=== PATIENT | male | born 1970 | race Hispanic/Latino ===

== ENCOUNTER 2019-03-15 16:04 | Inpatient (IN) | payer BC, OTHER ==
[~2019-03-15] VITALS: Ht 175.3 cm; Wt 112.8 kg
[~2019-03-15 16:04] MED LIST: AMOX-429 PO; AMOX875T2 PO; CETI10CA5 PO
[2019-03-15] MEDS ORDERED: SODIUM CHLORIDE 0.9% 1000ML 1,000 ML IV ONE ×2 (16:25→17:00)
[2019-03-15 16:48] LABS: APPEARANCE,URINE Clear (CLEAR); BILIRUBIN,URINE Negative (NEGATIVE); COLOR,URINE Yellow (YELLOW); GLUCOSE, URINE (UA) Negative (NEGATIVE); KETONES,URINE Negative (NEGATIVE); LEUKOCYTE ESTERASE ,URINE Trace (NEGATIVE); NITRATE,URINE Negative (NEGATIVE); OCCULT BLOOD,URINE Negative (NEGATIVE); PH,URINE 7.5 (5.0-8.0); PROTEIN,URINE Negative (NEGATIVE)
[2019-03-15 16:59] LABS: BACTERIA,URINE Few /HPF (None Seen); MUCUS,URINE None Seen LPF (None Seen)
[2019-03-15] MEDS ORDERED: KETOROLAC TROMETHAMINE 30MG/ML ONE (16:59)
[2019-03-15] MEDS ORDERED: METRONIDAZOLE 500MG/100ML BAG 100 ML ONE (16:59)
[2019-03-15] MEDS ORDERED: LEVOFLOXACIN 750 MG/D5W 150 ML 150 ML ONE (16:59)
[2019-03-15 17:02] LABS: BASOPHILS % (AUTO) 0.4 % (0.0-5.0); EOSINOPHILS % (AUTO) 0.7 % (0.0-8.0); HEMATOCRIT 45.1 % (42-54); LYMPHOCYTES % (AUTO) 15.8 % (21.0-51.0); MEAN CORPUSCULAR HEMOGLOBIN 29.2 pg (27.0-33.0); MEAN CORPUSCULAR HGB CONC 34.5 g/dL (32.0-36.0); MEAN CORPUSCULAR VOLUME 84.5 fL (79-99); MONOCYTES % (AUTO) 8.3 % (3.0-13.0); NEUTROPHILS % (AUTO) 74.8 % (40.0-77.0); PLATELET COUNT (AUTO) 171 K/uL (130-400); RED BLOOD CELL COUNT(AUTO) 5.34 MIL/uL (4.50-6.20); RED CELL DISTRIBUTION WIDTH 13.4 % (11.0-15.5); WHITE BLOOD COUNT (AUTO) 11.7 K/uL (4.8-10.8)
[2019-03-15 17:21] LABS: CARBON DIOXIDE 27 mmol/L (21-32); CHLORIDE 103 mmol/L (101-111); CREATININE 1.2 mg/dL (0.5-1.5); GLOMERULAR FILTR. RATE CALC 69 mL/min (>60); GLUCOSE,RANDOM 99 mg/dL (70-105); INR 1.05 (0.85-1.15); PARTIAL THROMBOPLASTIN TIME 25.5 SEC (26.3-35.5); POTASSIUM 3.8 mmol/L (3.5-5.1); SODIUM SERUM 141 mmol/L (136-145); UREA NITROGEN, BLOOD 13 mg/dL (7-18)
[2019-03-15 17:31] LABS: ALANINE AMINOTRANSFERASE 48 U/L (12-78); ALBUMIN 4.2 g/dL (3.5-5.0); AMYLASE 36 U/L (25-115); ASPARTATE AMINOTRANSFERASE 34 U/L (10-37); BILIRUBIN,TOTAL 1.4 mg/dL (0.2-1.0); CREATINE KINASE, TOTAL 81 U/L (21-232); LIPASE < 50 U/L (114-286); TOTAL PROTEIN, SERUM 7.7 g/dL (6.0-8.3)
[2019-03-15] MEDS ORDERED: TRAMADOL HCL 50 MG TABLET ONE (17:51)
[2019-03-15] MEDS ORDERED: MORPHINE SULFATE 4 MG/1ML SYG ONE ×2 (18:34→19:47)
[2019-03-15] MEDS ORDERED: ZOSYN 3.375GM+NS 50ML 50 ML IV ONE (19:35)
[2019-03-15] MEDS ORDERED: ONDANSETRON HCL 4 MG/2 ML VIAL IVP PRN (19:45)
[2019-03-15] MEDS: SODIUM CHLORIDE 0.9% 1000ML 1,000 ML IV SCH (19:45)
[2019-03-15] MEDS: ZOSYN 3.375GM+NS 50ML 50 ML IV SCH (21:00)
[2019-03-15 22:50] VITALS: BP 129/91
[2019-03-15] MEDS ORDERED: LACTULOSE 20 GM/30 ML UDCUP PO PRN (23:00)
[2019-03-15] MEDS ORDERED: ACETAMINOPHEN 325 MG TAB PO PRN ×2 (23:00)
[2019-03-15] MEDS ORDERED: LIDOCAINE HCL-MPF 1% 2ML VIAL IV PRN ×2 (23:00)
[2019-03-15] MEDS ORDERED: DIPHENHYDRAMINE HCL 25 MG CAPSULE PO PRN (23:00)
[2019-03-15] MEDS ORDERED: DiphenhydrAMINE HCL 50 MG/ML VIAL IV PRN (23:00)
[2019-03-15] MEDS ORDERED: POTASSIUM CHLORIDE 10% ELIXIR 20 MEQ/15 ML UDCUP PO PRN (23:00)
[2019-03-15] MEDS ORDERED: POTASSIUM CHLORIDE 20MEQ/100ML 100 ML IV PRN ×2 (23:00)
[2019-03-15] MEDS ORDERED: POTASSIUM CHLORIDE 20 MEQ ERTAB PO PRN (23:00)
[2019-03-15] MEDS ORDERED: ACETAMINOPHEN-CODEINE 300/30MG TAB PO PRN (23:00)
[2019-03-15] MEDS ORDERED: MAG HYDROX/AL HYDROX/SIMETH ES 30 ML SUSP UDCUP PO PRN (23:00)
[2019-03-15] MEDS: ONDANSETRON HCL 4 MG/2 ML VIAL IV PRN (23:09)
[2019-03-15] MEDS: MORPHINE SULFATE 4 MG/1ML SYG IVP PRN (23:09)
[2019-03-16] MEDS: MORPHINE SULFATE 4 MG/1ML SYG IVP PRN ×7 (02:00→22:08)
[2019-03-16] MEDS: SODIUM CHLORIDE 0.9% 1000ML 1,000 ML IV SCH ×2 (03:45→05:30)
[2019-03-16] MEDS: ZOSYN 3.375GM+NS 50ML 50 ML IV SCH ×3 (04:06→21:00)
[2019-03-16 04:28] VITALS: BP 121/68
[2019-03-16 05:56] LABS: HEMATOCRIT 40.9 % (42-54); MEAN CORPUSCULAR HEMOGLOBIN 29.1 pg (27.0-33.0); MEAN CORPUSCULAR HGB CONC 34.3 g/dL (32.0-36.0); MEAN CORPUSCULAR VOLUME 84.9 fL (79-99); PLATELET COUNT (AUTO) 153 K/uL (130-400); RED BLOOD CELL COUNT(AUTO) 4.82 MIL/uL (4.50-6.20); RED CELL DISTRIBUTION WIDTH 13.4 % (11.0-15.5); WHITE BLOOD COUNT (AUTO) 9.5 K/uL (4.8-10.8)
[2019-03-16 06:02] LABS: POTASSIUM 3.8 mmol/L (3.5-5.1)
[2019-03-16 07:41] VITALS: BP 121/77
[2019-03-16] MEDS ORDERED: MORPHINE SULFATE 4 MG/1ML SYG IVP PRN (07:45)
[2019-03-16] MEDS: ONDANSETRON HCL 4 MG/2 ML VIAL IV PRN ×2 (08:45→15:43)
[2019-03-16] MEDS: FAMOTIDINE/PF 20 MG/2 ML VIAL IV SCH (08:48)
[2019-03-16] MEDS: ENOXAPARIN SODIUM 40 MG/0.4 ML SYRINGE SQ SCH (08:51)
[2019-03-16 11:13] VITALS: BP 115/74
[2019-03-16] MEDS: METOCLOPRAMIDE 10 MG/2 ML VIAL IVP SCH ×4 (12:00→21:00)
[2019-03-16 15:54] VITALS: BP 113/72
--- NOTE | 2019-03-16 16:14 | NUR ---
RD NOTIFICATION Dx: Acute Pancreatitis. Hx: Diverticulitis, Diverticulosis, Hyperlipidemia. Diet: NPO. Pt stated he is currently experiencing nausea, abdominal pain and emesis. LBM: 03/15. Imaging findings suggest acute diverticulitis and gallstones. RD recommends continue current diet. Advance diet as tolerated when medically feasible to clear liquids, full liquids, and lastly low fiber & low fat diet. Once pt is tolerating well/ having no pain or discomfort- slowly increase fiber intake. RD will follow up with patient regarding dietary recommendations and nutrition education. Monitor labs, PO tolerance and pain. Yulissa Saldivar MS, RDN Addendum: 03/16/19 at [address] Amended: Links added.
[2019-03-16 19:40] VITALS: BP 131/71
[2019-03-17 00:16] VITALS: BP 110/77
[2019-03-17] MEDS: SODIUM CHLORIDE 0.9% 1000ML 1,000 ML IV SCH ×4 (03:17→19:55)
[2019-03-17] MEDS: MORPHINE SULFATE 4 MG/1ML SYG IVP PRN ×4 (03:18→23:08)
[2019-03-17] MEDS: METOCLOPRAMIDE 10 MG/2 ML VIAL IVP SCH ×4 (03:18→20:08)
[2019-03-17 03:50] VITALS: BP 118/64
[2019-03-17] MEDS: ZOSYN 3.375GM+NS 50ML 50 ML IV SCH ×3 (05:29→20:09)
[2019-03-17 05:51] LABS: HEMATOCRIT 42.7 % (42-54); MEAN CORPUSCULAR HEMOGLOBIN 29.1 pg (27.0-33.0); MEAN CORPUSCULAR HGB CONC 33.7 g/dL (32.0-36.0); MEAN CORPUSCULAR VOLUME 86.3 fL (79-99); NUCLEATED RED BLOOD CELLS 0.1 % (0.0-0.19); PLATELET COUNT (AUTO) 152 K/uL (130-400); RED BLOOD CELL COUNT(AUTO) 4.94 MIL/uL (4.50-6.20); RED CELL DISTRIBUTION WIDTH 13.5 % (11.0-15.5); WHITE BLOOD COUNT (AUTO) 7.6 K/uL (4.8-10.8)
[2019-03-17 06:05] LABS: POTASSIUM 3.8 mmol/L (3.5-5.1)
[2019-03-17 07:37] VITALS: BP 116/76
[2019-03-17] MEDS: FAMOTIDINE/PF 20 MG/2 ML VIAL IV SCH (08:16)
[2019-03-17] MEDS: ENOXAPARIN SODIUM 40 MG/0.4 ML SYRINGE SQ SCH (08:16)
[2019-03-17] MEDS: PANTOPRAZOLE SODIUM 40 MG TABLET.DR PO SCH (09:30)
[2019-03-17] MEDS: ONDANSETRON HCL 4 MG/2 ML VIAL IV PRN (11:04)
[2019-03-17 12:00] VITALS: BP 150/89
[2019-03-17 16:00] VITALS: BP 118/73
[2019-03-17 19:00] VITALS: BP 127/83
[2019-03-18] VITALS: BP 112/70
[2019-03-18] MEDS: METOCLOPRAMIDE 10 MG/2 ML VIAL IVP SCH (03:05)
[2019-03-18] MEDS: SODIUM CHLORIDE 0.9% 1000ML 1,000 ML IV SCH ×2 (03:50→11:45)
[2019-03-18 04:00] VITALS: BP 131/81
[2019-03-18] MEDS: ZOSYN 3.375GM+NS 50ML 50 ML IV SCH (04:08)
[2019-03-18] MEDS ORDERED: LEVO500T2 PO (07:39)
[2019-03-18 08:00] VITALS: BP 120/76
[2019-03-18] MEDS ORDERED: LEVOFLOXACIN 500 MG TABLET PO SCH (09:00)
[2019-03-18] MEDS: METOCLOPRAMIDE 10 MG TABLET PO SCH ×2 (09:18→12:47)
[2019-03-18] MEDS: ENOXAPARIN SODIUM 40 MG/0.4 ML SYRINGE SQ SCH (09:18)
[2019-03-18] MEDS: PANTOPRAZOLE SODIUM 40 MG TABLET.DR PO SCH (09:18)
[2019-03-18 11:49] VITALS: BP 133/78
== END 2019-03-18 17:02 | disposition home or self-care (01) | DRG 392 ==
LOC: EDH 16:04 → OBSVTOIN 18:35 → EDHIP 18:35 → 4DH 22:06 → 4BH 03-17 10:35
PROVIDERS: ADMIT Internal Medicine; ATTEND Internal Medicine
DX: K57.32 Diverticulitis of large intestine without perforation or abscess without bleeding (principal); E78.2 Mixed hyperlipidemia; F17.200 Nicotine dependence, unspecified, uncomplicated; I70.0 Atherosclerosis of aorta; J30.9 Allergic rhinitis, unspecified; K80.20 Calculus of gallbladder without cholecystitis without obstruction; M50.90 Cervical disc disorder, unspecified, unspecified cervical region; E66.9 Obesity, unspecified; M75.91 Shoulder lesion, unspecified, right shoulder; R16.0 Hepatomegaly, not elsewhere classified; Z82.49 Family history of ischemic heart disease and other diseases of the circulatory system; Z68.36 Body mass index [BMI] 36.0-36.9, adult
CPT/HCPCS: 36415; 71045; 74018; 74176; 80048; 80053; 81001; 82150; 82550; 83690; 84484; 85025; 85027; 85610; 85730; 87040; 93005; G0378; J1650; J1885; J1956; J2270; J2405; J2543; J2765; J3490; J7030

== ENCOUNTER 2019-11-29 14:13 | Emergency (ER) | payer BC ==
[~2019-11-29 14:13] MED LIST changes: -AMOX-429 PO; -AMOX875T2 PO; -CETI10CA5 PO; +LEVO500T2 PO
[2019-11-29] MEDS ORDERED: ACETAMINOPHEN EXTRA STRENGTH 500 MG TABLET ONE (14:35)
[2019-11-29 15:07] LABS: RAPID GROUP A STREP NEGATIVE (NEGATIVE)
== END 2019-11-29 15:47 | disposition home or self-care (01) ==
LOC: EDH 14:13
DX: U07.1 COVID-19 (principal); Z87.891 Personal history of nicotine dependence
CPT/HCPCS: 36415; 71045; 87804 ×2; 87880; 99284; U0003

== ENCOUNTER 2019-12-02 13:27 | Emergency (ER) | payer BC ==
[2019-12-02 15:46] LABS: BASOPHILS % (AUTO) 0.1 % (0.0-5.0); HEMATOCRIT 50.4 % (42-54); LYMPHOCYTES % (AUTO) 10.4 % (21.0-51.0); MEAN CORPUSCULAR HEMOGLOBIN 28.5 pg (27.0-33.0); MEAN CORPUSCULAR HGB CONC 33.5 g/dL (32.0-36.0); MONOCYTES % (AUTO) 4.2 % (3.0-13.0); NEUTROPHILS % (AUTO) 84.6 % (40.0-77.0); PLATELET COUNT (AUTO) 209 K/uL (130-400); RED BLOOD CELL COUNT(AUTO) 5.93 MIL/uL (4.50-6.20); RED CELL DISTRIBUTION WIDTH 13.1 % (11.0-15.5); WHITE BLOOD COUNT (AUTO) 7.6 K/uL (4.8-10.8)
[2019-12-02 15:57] LABS: INR 0.99 (0.85-1.15); PARTIAL THROMBOPLASTIN TIME 27.4 SEC (26.3-35.5); PROTHROMBIN TIME 10.7 SEC (9.6-11.6)
[2019-12-02 16:02] LABS: CARBON DIOXIDE 25 mmol/L (21-32); CHLORIDE 101 mmol/L (101-111); CREATININE 1.1 mg/dL (0.5-1.5); GLOMERULAR FILTR. RATE CALC 76 mL/min (>60); GLUCOSE,RANDOM 132 mg/dL (70-105); POTASSIUM 3.7 mmol/L (3.5-5.1); SODIUM SERUM 139 mmol/L (136-145); UREA NITROGEN, BLOOD 16 mg/dL (7-18)
[2019-12-02] MEDS ORDERED: ACETAMINOPHEN 325 MG TAB ONE (16:09)
[2019-12-02 16:17] LABS: ALANINE AMINOTRANSFERASE 86 U/L (12-78); ALBUMIN 4.3 g/dL (3.5-5.0); ASPARTATE AMINOTRANSFERASE 77 U/L (10-37); BILIRUBIN,TOTAL 0.9 mg/dL (0.2-1.0); CREATINE KINASE, TOTAL 44 U/L (21-232); MYOGLOBIN 33 ng/mL (10-92); TOTAL PROTEIN, SERUM 8.7 g/dL (6.0-8.3); TROPONIN I < 0.04 ng/mL (0.00-0.06)
[2019-12-02] MEDS ORDERED: METHYLPREDNISOLONE SOD SUCC 40MG/ML 1ML ONE (17:55)
[2019-12-02] MEDS ORDERED: CEFTRIAXONE SODIUM 1 GM ONE (17:56)
[2019-12-02] MEDS ORDERED: AZITHROMYCIN 500MG+NS 250ML 250 ML IV ONE (17:56)
[2019-12-02 18:32] LABS: ABG HCO3 22.4 mmol/L (21.0-28.0); ABG OXYGEN SATURATION 96.4 % (95.0-99.0); ABG PCO2 34 mmHg (35-48)
== END 2019-12-02 19:20 | disposition home or self-care (01) ==
LOC: EDH 13:27
DX: U07.1 COVID-19 (principal); R06.00 Dyspnea, unspecified; R50.9 Fever, unspecified
CPT/HCPCS: 36415; 36600; 71045; 80053; 82550; 82803; 83605 ×2; 83874; 84145; 84484; 85025; 85378; 85610; 85730; 86900; 86901; 87040 ×2; 93005; 96365; 96375; 99285; J0456; J0696; J2920

== ENCOUNTER 2019-12-07 08:43 | Inpatient (IN) | payer BC ==
[~2019-12-07] VITALS: Ht 175.3 cm; Wt 102.9 kg
[2019-12-07 09:39] LABS: BASOPHILS % (AUTO) 0.2 % (0.0-5.0); HEMATOCRIT 47.1 % (42-54); LYMPHOCYTES % (AUTO) 8.8 % (21.0-51.0); MEAN CORPUSCULAR HEMOGLOBIN 28.6 pg (27.0-33.0); MEAN CORPUSCULAR HGB CONC 33.8 g/dL (32.0-36.0); MEAN CORPUSCULAR VOLUME 84.9 fL (79-99); MONOCYTES % (AUTO) 5.4 % (3.0-13.0); NEUTROPHILS % (AUTO) 84.7 % (40.0-77.0); PLATELET COUNT (AUTO) 291 K/uL (130-400); RED BLOOD CELL COUNT(AUTO) 5.55 MIL/uL (4.50-6.20); RED CELL DISTRIBUTION WIDTH 12.5 % (11.0-15.5); WHITE BLOOD COUNT (AUTO) 14.5 K/uL (4.8-10.8)
[2019-12-07 10:03] LABS: INR 0.97 (0.85-1.15); PARTIAL THROMBOPLASTIN TIME 23.2 SEC (26.3-35.5); PROTHROMBIN TIME 10.5 SEC (9.6-11.6)
[2019-12-07 10:18] LABS: ALANINE AMINOTRANSFERASE 36 U/L (12-78); ALBUMIN 3.5 g/dL (3.5-5.0); ASPARTATE AMINOTRANSFERASE 26 U/L (10-37); BILIRUBIN,TOTAL 0.9 mg/dL (0.2-1.0); CARBON DIOXIDE 28 mmol/L (21-32); CHLORIDE 103 mmol/L (101-111); CREATINE KINASE, TOTAL 38 U/L (21-232); CREATININE 1.2 mg/dL (0.5-1.5); GLOMERULAR FILTR. RATE CALC 68 mL/min (>60); GLUCOSE,RANDOM 116 mg/dL (70-105); MYOGLOBIN 51 ng/mL (10-92); POTASSIUM 3.8 mmol/L (3.5-5.1); SODIUM SERUM 139 mmol/L (136-145); TOTAL PROTEIN, SERUM 8.1 g/dL (6.0-8.3); TROPONIN I < 0.04 ng/mL (0.00-0.06); UREA NITROGEN, BLOOD 22 mg/dL (7-18)
[2019-12-07] MEDS ORDERED: DEXAMETHASONE SOD PHOSPHATE 10MG/ML 1ML VIAL ONE (10:51)
[2019-12-07 12:12] LABS: ABG BASE EXCESS -1.1 mmol/L (-2.0-3.0); ABG HCO3 22.8 mmol/L (21.0-28.0); ABG OXYGEN SATURATION 97.6 % (95.0-99.0); ABG PCO2 36 mmHg (35-48)
[2019-12-07] MEDS ORDERED: DOXYCYCLINE 100MG+NS 250ML 250 ML IV ONE (12:13)
[2019-12-07] MEDS ORDERED: DOXYCYCLINE 100MG+NS 250ML IV SCH (13:30)
[2019-12-07] MEDS ORDERED: ERGOCALCIFEROL (VITAMIN D2) 50,000 UNIT CAPSULE PO ONE (13:30)
[2019-12-07] MEDS ORDERED: METHYLPREDNISOLONE SOD SUCC 40MG/ML 1ML ONE ×2 (14:22→20:39)
[2019-12-07] MEDS ORDERED: ERGOCALCIFEROL (VITAMIN D2) 50,000 UNIT CAPSULE ONE (14:23)
[2019-12-07] MEDS ORDERED: IOHEXOL 350 MG/ML 100ML INFUS..BTL IV ONE (14:46)
[2019-12-07 15:08] LABS: APPEARANCE,URINE Clear (CLEAR); BILIRUBIN,URINE Negative (NEGATIVE); COLOR,URINE Dark Yellow (YELLOW); GLUCOSE, URINE (UA) Negative (NEGATIVE); KETONES,URINE Negative (NEGATIVE); LEUKOCYTE ESTERASE ,URINE Negative (NEGATIVE); NITRATE,URINE Negative (NEGATIVE); OCCULT BLOOD,URINE Negative (NEGATIVE); PH,URINE 5.5 (5.0-8.0); PROTEIN,URINE Negative (NEGATIVE)
[2019-12-07] MEDS ORDERED: ONDANSETRON HCL 4 MG/2 ML VIAL IVP PRN (17:30)
[2019-12-07] MEDS ORDERED: BENZONATATE 100 MG CAPSULE PO PRN (17:30)
[2019-12-07] MEDS ORDERED: ACETAMINOPHEN 325 MG TAB PO PRN (17:30)
[2019-12-07] MEDS ORDERED: ENOXAPARIN SODIUM 100 MG/1 ML SQ ONE (20:41)
[2019-12-07] MEDS ORDERED: ACETAMINOPHEN 325 MG TAB ONE (20:53)
[2019-12-08] MEDS ORDERED: DOXYCYCLINE 100MG+NS 250ML 250 ML IV ONE (00:12)
[2019-12-08 05:55] LABS: BASOPHILS % (AUTO) 0.1 % (0.0-5.0); EOSINOPHILS % (AUTO) 0.1 % (0.0-8.0); HEMATOCRIT 43.7 % (42-54); LYMPHOCYTES % (AUTO) 9.3 % (21.0-51.0); MEAN CORPUSCULAR HEMOGLOBIN 28.3 pg (27.0-33.0); MEAN CORPUSCULAR HGB CONC 33.2 g/dL (32.0-36.0); MEAN CORPUSCULAR VOLUME 85.2 fL (79-99); MONOCYTES % (AUTO) 4.4 % (3.0-13.0); NEUTROPHILS % (AUTO) 84.9 % (40.0-77.0); PLATELET COUNT (AUTO) 271 K/uL (130-400); RED BLOOD CELL COUNT(AUTO) 5.13 MIL/uL (4.50-6.20); RED CELL DISTRIBUTION WIDTH 12.6 % (11.0-15.5); WHITE BLOOD COUNT (AUTO) 12.9 K/uL (4.8-10.8)
[2019-12-08 06:07] LABS: ALBUMIN 2.7 g/dL (3.5-5.0); BILIRUBIN,TOTAL 0.7 mg/dL (0.2-1.0); CREATININE 1.1 mg/dL (0.5-1.5); CRP QUANTITATIVE 57.1 mg/L (0.00-9.0); POTASSIUM 4.2 mmol/L (3.5-5.1); TOTAL PROTEIN, SERUM 6.9 g/dL (6.0-8.3)
[2019-12-08] MEDS ORDERED: ZINC SULFATE 220 CAPSULE ONE (08:11)
[2019-12-08] MEDS ORDERED: METHYLPREDNISOLONE SOD SUCC 40MG/ML 1ML ONE (08:11)
[2019-12-08] MEDS ORDERED: DOXYCYCLINE HYCLATE 100 MG TABLET PO ONE (08:11)
[2019-12-08] MEDS ORDERED: ASCORBIC ACID 500 MG TAB ONE (08:11)
[2019-12-08] MEDS ORDERED: ENOXAPARIN SODIUM 120 MG/0.8ML SQ ONE (08:12)
[2019-12-08] MEDS: ASCORBIC ACID 500 MG TAB PO SCH (09:00)
[2019-12-08] MEDS: DOXYCYCLINE HYCLATE 100 MG TABLET PO SCH ×2 (09:00→21:46)
[2019-12-08] MEDS: ENOXAPARIN SODIUM 120 MG/0.8ML SQ SCH ×2 (09:00→21:00)
[2019-12-08] MEDS ORDERED: ALBUTEROL INHALER 90MCG/INH IH ONE (10:27)
[2019-12-08] MEDS ORDERED: ALBUTEROL INHALER 90MCG/INH IH PRN (10:30)
[2019-12-08 11:02] LABS: ABG BASE EXCESS -3.8 mmol/L (-2.0-3.0); ABG HCO3 20.1 mmol/L (21.0-28.0); ABG OXYGEN SATURATION 98.3 % (95.0-99.0); ABG PCO2 34 mmHg (35-48)
[2019-12-08] MEDS ORDERED: KETOROLAC TROMETHAMINE 15MG/ML ONE (11:47)
[2019-12-08] MEDS: CEFTRIAXONE SODIUM 1 GM IVP SCH (12:00)
[2019-12-08] MEDS: ZINC SULFATE 220 CAPSULE PO SCH (12:00)
[2019-12-08] MEDS: METHYLPREDNISOLONE SOD SUCC 40MG/ML 1ML IVP SCH ×2 (14:00→21:45)
[2019-12-08] MEDS ORDERED: MORPHINE SULFATE 2 MG/ML 1ML SYG ONE (14:38)
[2019-12-08] MEDS ORDERED: CEFTRIAXONE SODIUM 1 GM ONE (16:32)
[2019-12-08] MEDS ORDERED: SODIUM CHLORIDE 0.9% 100 ML IV ONE (16:34)
[2019-12-08 17:45] VITALS: BP 121/75
[2019-12-08 19:25] VITALS: BP 115/66
[2019-12-08 23:58] VITALS: BP 103/65
[2019-12-09 03:20] VITALS: BP 111/67
[2019-12-09 04:46] LABS: BASOPHILS % (AUTO) 0.1 % (0.0-5.0); HEMATOCRIT 46.3 % (42-54); LYMPHOCYTES % (AUTO) 7.7 % (21.0-51.0); MEAN CORPUSCULAR HEMOGLOBIN 27.9 pg (27.0-33.0); MEAN CORPUSCULAR HGB CONC 32.4 g/dL (32.0-36.0); MEAN CORPUSCULAR VOLUME 86.1 fL (79-99); MONOCYTES % (AUTO) 4.2 % (3.0-13.0); NEUTROPHILS % (AUTO) 86.9 % (40.0-77.0); PLATELET COUNT (AUTO) 281 K/uL (130-400); RED BLOOD CELL COUNT(AUTO) 5.38 MIL/uL (4.50-6.20); RED CELL DISTRIBUTION WIDTH 12.3 % (11.0-15.5); WHITE BLOOD COUNT (AUTO) 14.2 K/uL (4.8-10.8)
[2019-12-09 05:21] LABS: ALBUMIN 2.9 g/dL (3.5-5.0); BILIRUBIN,TOTAL 0.7 mg/dL (0.2-1.0); CRP QUANTITATIVE 31.4 mg/L (0.00-9.0); POTASSIUM 4.3 mmol/L (3.5-5.1); TOTAL PROTEIN, SERUM 7.1 g/dL (6.0-8.3)
[2019-12-09 08:40] VITALS: BP 112/62
[2019-12-09] MEDS: METHYLPREDNISOLONE SOD SUCC 40MG/ML 1ML IVP SCH ×3 (09:04→20:01)
[2019-12-09] MEDS: ASCORBIC ACID 500 MG TAB PO SCH (09:04)
[2019-12-09] MEDS: DOXYCYCLINE HYCLATE 100 MG TABLET PO SCH ×2 (09:04→20:01)
[2019-12-09] MEDS ORDERED: CHLORDIAZEPOXIDE HCL 25 MG CAP PO SCH (09:45)
[2019-12-09 12:05] VITALS: BP 114/72
[2019-12-09] MEDS: ZINC SULFATE 220 CAPSULE PO SCH (13:10)
[2019-12-09] MEDS: CEFTRIAXONE SODIUM 1 GM IVP SCH (13:10)
[2019-12-09] MEDS ORDERED: SODIUM CHLORIDE 0.9% 250 ML IV ONE (16:22)
[2019-12-09 16:55] VITALS: BP 117/75
[2019-12-09 19:25] VITALS: BP 119/70
[2019-12-09] MEDS: ENOXAPARIN SODIUM 60 MG/0.6 ML SQ SCH (20:06)
[2019-12-09 23:52] VITALS: BP 133/74
[2019-12-10 03:25] VITALS: BP 110/74
[2019-12-10 06:17] LABS: BASOPHILS % (AUTO) 0.2 % (0.0-5.0); HEMATOCRIT 45.6 % (42-54); LYMPHOCYTES % (AUTO) 6.7 % (21.0-51.0); MEAN CORPUSCULAR HGB CONC 32.9 g/dL (32.0-36.0); MEAN CORPUSCULAR VOLUME 85.2 fL (79-99); MONOCYTES % (AUTO) 5.3 % (3.0-13.0); NEUTROPHILS % (AUTO) 86.8 % (40.0-77.0); PLATELET COUNT (AUTO) 246 K/uL (130-400); RED BLOOD CELL COUNT(AUTO) 5.35 MIL/uL (4.50-6.20); RED CELL DISTRIBUTION WIDTH 12.2 % (11.0-15.5); WHITE BLOOD COUNT (AUTO) 12.9 K/uL (4.8-10.8)
[2019-12-10 06:42] LABS: BILIRUBIN,TOTAL 0.8 mg/dL (0.2-1.0); CREATININE 1.1 mg/dL (0.5-1.5); CRP QUANTITATIVE 18.9 mg/L (0.00-9.0); POTASSIUM 4.5 mmol/L (3.5-5.1); TOTAL PROTEIN, SERUM 7.1 g/dL (6.0-8.3)
[2019-12-10] MEDS: ENOXAPARIN SODIUM 60 MG/0.6 ML SQ SCH ×2 (08:21→19:36)
[2019-12-10] MEDS: METHYLPREDNISOLONE SOD SUCC 40MG/ML 1ML IVP SCH ×3 (08:21→19:32)
[2019-12-10] MEDS: ASCORBIC ACID 500 MG TAB PO SCH (08:21)
[2019-12-10] MEDS: DOXYCYCLINE HYCLATE 100 MG TABLET PO SCH ×2 (08:21→19:33)
[2019-12-10 12:00] VITALS: BP 113/72
[2019-12-10] MEDS ORDERED: PHARMACY COMMUNICATION MISC SCH (13:30)
[2019-12-10] MEDS: PHARMACY COMMUNICATION** REMDESIVIR ORDER MISC SCH ×2 (13:30→21:30)
[2019-12-10] MEDS: ZINC SULFATE 220 CAPSULE PO SCH (13:33)
[2019-12-10] MEDS: CEFTRIAXONE SODIUM 1 GM IVP SCH (13:33)
[2019-12-10 16:00] VITALS: BP 127/74
[2019-12-10 19:15] VITALS: BP 108/66
[2019-12-10 23:26] VITALS: BP 110/65
[2019-12-11 03:30] VITALS: BP 111/73
[2019-12-11 04:24] LABS: BASOPHILS % (AUTO) 0.1 % (0.0-5.0); HEMATOCRIT 46.4 % (42-54); LYMPHOCYTES % (AUTO) 8.2 % (21.0-51.0); MEAN CORPUSCULAR HEMOGLOBIN 28.5 pg (27.0-33.0); MEAN CORPUSCULAR HGB CONC 33.6 g/dL (32.0-36.0); MEAN CORPUSCULAR VOLUME 84.8 fL (79-99); MONOCYTES % (AUTO) 4.5 % (3.0-13.0); NEUTROPHILS % (AUTO) 86.3 % (40.0-77.0); PLATELET COUNT (AUTO) 289 K/uL (130-400); RED BLOOD CELL COUNT(AUTO) 5.47 MIL/uL (4.50-6.20); RED CELL DISTRIBUTION WIDTH 11.9 % (11.0-15.5); WHITE BLOOD COUNT (AUTO) 9.9 K/uL (4.8-10.8)
[2019-12-11 04:34] LABS: ALANINE AMINOTRANSFERASE 108 U/L (12-78); ASPARTATE AMINOTRANSFERASE 59 U/L (10-37); BILIRUBIN,TOTAL 0.8 mg/dL (0.2-1.0); CARBON DIOXIDE 28 mmol/L (21-32); CHLORIDE 103 mmol/L (101-111); CREATININE 1.1 mg/dL (0.5-1.5); GLOMERULAR FILTR. RATE CALC 76 mL/min (>60); GLUCOSE,RANDOM 145 mg/dL (70-105); LACTATE DEHYDROGENASE 214 U/L (81-234); POTASSIUM 4.7 mmol/L (3.5-5.1); SODIUM SERUM 135 mmol/L (136-145); UREA NITROGEN, BLOOD 31 mg/dL (7-18)
[2019-12-11] MEDS: PHARMACY COMMUNICATION** REMDESIVIR ORDER MISC SCH ×3 (05:30→21:30)
[2019-12-11 08:44] VITALS: BP 111/63
[2019-12-11] MEDS: ASCORBIC ACID 500 MG TAB PO SCH (08:58)
[2019-12-11] MEDS: ENOXAPARIN SODIUM 60 MG/0.6 ML SQ SCH ×2 (08:59→19:41)
[2019-12-11] MEDS: METHYLPREDNISOLONE SOD SUCC 40MG/ML 1ML IVP SCH ×3 (08:59→19:40)
[2019-12-11] MEDS: DOXYCYCLINE HYCLATE 100 MG TABLET PO SCH ×2 (08:59→19:40)
[2019-12-11 11:14] VITALS: BP 107/55
[2019-12-11] MEDS: ZINC SULFATE 220 CAPSULE PO SCH (12:39)
[2019-12-11] MEDS: CEFTRIAXONE SODIUM 1 GM IVP SCH (12:39)
[2019-12-11 15:29] VITALS: BP 127/78
[2019-12-11] MEDS ORDERED: COMPOUND IV REFRIGERATED 1 EACH IVSOLN MISC PRN (17:00)
[2019-12-11] MEDS ORDERED: REMDESIVIR (EUA) 520 200 MG in SODIUM CHLORIDE 0.9% 250 ML IV SCH (18:00)
[2019-12-11 20:23] VITALS: BP 102/70
[2019-12-11 23:40] VITALS: BP 124/75
[2019-12-12 03:44] VITALS: BP_SYST 112; BP_SYST 131; BP_DIAS 71; BP_DIAS 77
[2019-12-12 05:14] LABS: BASOPHILS % (AUTO) 0.1 % (0.0-5.0); HEMATOCRIT 46.7 % (42-54); LYMPHOCYTES % (AUTO) 9.3 % (21.0-51.0); MEAN CORPUSCULAR HEMOGLOBIN 28.2 pg (27.0-33.0); MEAN CORPUSCULAR HGB CONC 33.4 g/dL (32.0-36.0); MEAN CORPUSCULAR VOLUME 84.4 fL (79-99); MONOCYTES % (AUTO) 5.6 % (3.0-13.0); NEUTROPHILS % (AUTO) 83.8 % (40.0-77.0); PLATELET COUNT (AUTO) 297 K/uL (130-400); RED BLOOD CELL COUNT(AUTO) 5.53 MIL/uL (4.50-6.20); RED CELL DISTRIBUTION WIDTH 11.9 % (11.0-15.5); WHITE BLOOD COUNT (AUTO) 9.8 K/uL (4.8-10.8)
[2019-12-12] MEDS: PHARMACY COMMUNICATION** REMDESIVIR ORDER MISC SCH ×3 (05:30→20:52)
[2019-12-12 05:42] LABS: BILIRUBIN,TOTAL 0.8 mg/dL (0.2-1.0); CRP QUANTITATIVE 7.4 mg/L (0.00-9.0); POTASSIUM 4.6 mmol/L (3.5-5.1)
[2019-12-12] MEDS: DOXYCYCLINE HYCLATE 100 MG TABLET PO SCH ×2 (08:47→20:50)
[2019-12-12] MEDS: ASCORBIC ACID 500 MG TAB PO SCH (08:47)
[2019-12-12] MEDS: METHYLPREDNISOLONE SOD SUCC 40MG/ML 1ML IVP SCH ×3 (08:47→20:50)
[2019-12-12] MEDS: ENOXAPARIN SODIUM 60 MG/0.6 ML SQ SCH ×2 (08:48→20:50)
[2019-12-12] MEDS: CEFTRIAXONE SODIUM 1 GM IVP SCH (13:58)
[2019-12-12] MEDS: ZINC SULFATE 220 CAPSULE PO SCH (13:58)
[2019-12-12 16:31] VITALS: BP 110/68
[2019-12-12] MEDS: REMDESIVIR (EUA) 520 100 MG in SODIUM CHLORIDE 0.9% 250 ML IV SCH (17:55)
[2019-12-12 21:00] VITALS: BP 101/76
[2019-12-12] MEDS ORDERED: HYDROMORPHONE HCL 2 MG/ML VIAL ONE (23:08)
[2019-12-12 23:23] VITALS: BP 122/77
[2019-12-13] MEDS: HYDROMORPHONE HCL 2 MG/ML VIAL IVP PRN ×4 (00:16→05:54)
[2019-12-13 03:53] VITALS: BP 122/76
[2019-12-13 05:18] LABS: BASOPHILS % (AUTO) 0.1 % (0.0-5.0); LYMPHOCYTES % (AUTO) 8.7 % (21.0-51.0); MEAN CORPUSCULAR HEMOGLOBIN 28.1 pg (27.0-33.0); MEAN CORPUSCULAR HGB CONC 33.5 g/dL (32.0-36.0); MEAN CORPUSCULAR VOLUME 83.9 fL (79-99); MONOCYTES % (AUTO) 6.2 % (3.0-13.0); NEUTROPHILS % (AUTO) 83.9 % (40.0-77.0); PLATELET COUNT (AUTO) 233 K/uL (130-400); RED BLOOD CELL COUNT(AUTO) 5.48 MIL/uL (4.50-6.20); RED CELL DISTRIBUTION WIDTH 11.9 % (11.0-15.5); WHITE BLOOD COUNT (AUTO) 10.3 K/uL (4.8-10.8)
[2019-12-13 05:56] LABS: ALBUMIN 2.9 g/dL (3.5-5.0); BILIRUBIN,TOTAL 0.8 mg/dL (0.2-1.0); CREATININE 1.1 mg/dL (0.5-1.5); POTASSIUM 4.6 mmol/L (3.5-5.1); TOTAL PROTEIN, SERUM 6.7 g/dL (6.0-8.3)
[2019-12-13 07:46] VITALS: BP 114/72
[2019-12-13] MEDS: ASCORBIC ACID 500 MG TAB PO SCH (07:50)
[2019-12-13] MEDS: LACTULOSE 20 GM/30 ML UDCUP PO PRN (07:50)
[2019-12-13] MEDS: METHYLPREDNISOLONE SOD SUCC 40MG/ML 1ML IVP SCH ×3 (07:50→21:29)
[2019-12-13] MEDS: DOXYCYCLINE HYCLATE 100 MG TABLET PO SCH ×2 (07:50→21:29)
[2019-12-13] MEDS: ENOXAPARIN SODIUM 60 MG/0.6 ML SQ SCH (07:52)
[2019-12-13 11:54] VITALS: BP 112/66
[2019-12-13] MEDS: CEFTRIAXONE SODIUM 1 GM IVP SCH (12:12)
[2019-12-13] MEDS: ZINC SULFATE 220 CAPSULE PO SCH (12:12)
[2019-12-13] MEDS: PHARMACY COMMUNICATION** REMDESIVIR ORDER MISC SCH ×3 (13:30→23:28)
[2019-12-13 15:38] VITALS: BP 108/69
[2019-12-13] MEDS: REMDESIVIR (EUA) 520 100 MG in SODIUM CHLORIDE 0.9% 250 ML IV SCH (18:34)
[2019-12-13 20:50] VITALS: BP 108/66
[2019-12-14] VITALS (7 sets, daily range): BP systolic 100–117; BP diastolic 66–78
[2019-12-14 05:37] LABS: BASOPHILS % (AUTO) 0.2 % (0.0-5.0); HEMATOCRIT 46.4 % (42-54); LYMPHOCYTES % (AUTO) 7.3 % (21.0-51.0); MEAN CORPUSCULAR HEMOGLOBIN 28.3 pg (27.0-33.0); MEAN CORPUSCULAR HGB CONC 33.8 g/dL (32.0-36.0); MEAN CORPUSCULAR VOLUME 83.8 fL (79-99); MONOCYTES % (AUTO) 4.3 % (3.0-13.0); NEUTROPHILS % (AUTO) 87.1 % (40.0-77.0); PLATELET COUNT (AUTO) 231 K/uL (130-400); RED BLOOD CELL COUNT(AUTO) 5.54 MIL/uL (4.50-6.20); RED CELL DISTRIBUTION WIDTH 12.1 % (11.0-15.5); WHITE BLOOD COUNT (AUTO) 11.4 K/uL (4.8-10.8)
[2019-12-14 05:55] LABS: ALANINE AMINOTRANSFERASE 106 U/L (12-78); ALBUMIN 2.9 g/dL (3.5-5.0); ASPARTATE AMINOTRANSFERASE 32 U/L (10-37); BILIRUBIN,TOTAL 0.8 mg/dL (0.2-1.0); CARBON DIOXIDE 31 mmol/L (21-32); CHLORIDE 103 mmol/L (101-111); GLOMERULAR FILTR. RATE CALC 84 mL/min (>60); GLUCOSE,RANDOM 148 mg/dL (70-105); LACTATE DEHYDROGENASE 177 U/L (81-234); POTASSIUM 4.7 mmol/L (3.5-5.1); SODIUM SERUM 136 mmol/L (136-145); TOTAL PROTEIN, SERUM 6.5 g/dL (6.0-8.3); UREA NITROGEN, BLOOD 27 mg/dL (7-18)
[2019-12-14] MEDS: ENOXAPARIN SODIUM 60 MG/0.6 ML SQ SCH (09:38)
[2019-12-14] MEDS: METHYLPREDNISOLONE SOD SUCC 40MG/ML 1ML IVP SCH ×3 (09:38→19:40)
[2019-12-14] MEDS: ASCORBIC ACID 500 MG TAB PO SCH (09:38)
[2019-12-14] MEDS: DOXYCYCLINE HYCLATE 100 MG TABLET PO SCH ×2 (09:39→19:40)
[2019-12-14] MEDS: ACETAMINOPHEN 325 MG TAB PO PRN (09:50)
[2019-12-14] MEDS: ZINC SULFATE 220 CAPSULE PO SCH (13:45)
[2019-12-14] MEDS: CEFTRIAXONE SODIUM 1 GM IVP SCH (13:45)
[2019-12-14] MEDS: REMDESIVIR (EUA) 520 100 MG in SODIUM CHLORIDE 0.9% 250 ML IV SCH (17:56)
[2019-12-15 04:43] VITALS: BP 119/71
[2019-12-15 06:18] LABS: BASOPHILS % (AUTO) 0.1 % (0.0-5.0); HEMATOCRIT 45.6 % (42-54); LYMPHOCYTES % (AUTO) 7.5 % (21.0-51.0); MEAN CORPUSCULAR HEMOGLOBIN 28.1 pg (27.0-33.0); MEAN CORPUSCULAR HGB CONC 33.8 g/dL (32.0-36.0); MEAN CORPUSCULAR VOLUME 83.2 fL (79-99); NEUTROPHILS % (AUTO) 86.3 % (40.0-77.0); PLATELET COUNT (AUTO) 259 K/uL (130-400); RED BLOOD CELL COUNT(AUTO) 5.48 MIL/uL (4.50-6.20); RED CELL DISTRIBUTION WIDTH 11.9 % (11.0-15.5); WHITE BLOOD COUNT (AUTO) 12.2 K/uL (4.8-10.8)
[2019-12-15 06:29] LABS: ALBUMIN 2.9 g/dL (3.5-5.0); BILIRUBIN,TOTAL 0.8 mg/dL (0.2-1.0); CRP QUANTITATIVE 7.2 mg/L (0.00-9.0); POTASSIUM 4.7 mmol/L (3.5-5.1); TOTAL PROTEIN, SERUM 6.5 g/dL (6.0-8.3)
[2019-12-15 07:00] VITALS: BP 112/71
[2019-12-15] MEDS: METHYLPREDNISOLONE SOD SUCC 40MG/ML 1ML IVP SCH ×3 (10:31→20:24)
[2019-12-15] MEDS: DOXYCYCLINE HYCLATE 100 MG TABLET PO SCH ×2 (10:32→20:24)
[2019-12-15] MEDS: ASCORBIC ACID 500 MG TAB PO SCH (10:32)
[2019-12-15] MEDS: ENOXAPARIN SODIUM 60 MG/0.6 ML SQ SCH (10:32)
[2019-12-15 11:00] VITALS: BP 109/68
[2019-12-15] MEDS: CEFTRIAXONE SODIUM 1 GM IVP SCH (12:15)
[2019-12-15] MEDS: ZINC SULFATE 220 CAPSULE PO SCH (12:15)
[2019-12-15] MEDS: LACTULOSE 20 GM/30 ML UDCUP PO PRN ×2 (12:26→18:30)
[2019-12-15 16:00] VITALS: BP 107/64
[2019-12-15] MEDS: REMDESIVIR (EUA) 520 100 MG in SODIUM CHLORIDE 0.9% 250 ML IV SCH (18:34)
[2019-12-15 20:00] VITALS: BP 108/69
[2019-12-15] MEDS ORDERED: KETOROLAC TROMETHAMINE 30MG/ML IM PRN (20:15)
[2019-12-15 23:57] VITALS: BP 118/76
[2019-12-16 04:00] VITALS: BP 111/74
[2019-12-16 07:57] LABS: BASOPHILS % (AUTO) 0.1 % (0.0-5.0); HEMATOCRIT 43.6 % (42-54); LYMPHOCYTES % (AUTO) 6.7 % (21.0-51.0); MEAN CORPUSCULAR HEMOGLOBIN 28.4 pg (27.0-33.0); MEAN CORPUSCULAR HGB CONC 34.4 g/dL (32.0-36.0); MEAN CORPUSCULAR VOLUME 82.6 fL (79-99); MONOCYTES % (AUTO) 5.6 % (3.0-13.0); NEUTROPHILS % (AUTO) 86.5 % (40.0-77.0); PLATELET COUNT (AUTO) 228 K/uL (130-400); RED BLOOD CELL COUNT(AUTO) 5.28 MIL/uL (4.50-6.20); WHITE BLOOD COUNT (AUTO) 14.1 K/uL (4.8-10.8)
[2019-12-16 08:07] LABS: ALBUMIN 2.8 g/dL (3.5-5.0); BILIRUBIN,TOTAL 0.7 mg/dL (0.2-1.0); CREATININE 1.1 mg/dL (0.5-1.5); CRP QUANTITATIVE 4.9 mg/L (0.00-9.0); POTASSIUM 4.6 mmol/L (3.5-5.1); TOTAL PROTEIN, SERUM 6.1 g/dL (6.0-8.3)
[2019-12-16 08:30] VITALS: BP 115/76
[2019-12-16] MEDS: METHYLPREDNISOLONE SOD SUCC 40MG/ML 1ML IVP SCH ×2 (09:28→12:55)
[2019-12-16] MEDS: DOXYCYCLINE HYCLATE 100 MG TABLET PO SCH (09:28)
[2019-12-16] MEDS: ENOXAPARIN SODIUM 60 MG/0.6 ML SQ SCH (09:29)
[2019-12-16] MEDS: ASCORBIC ACID 500 MG TAB PO SCH (09:29)
[2019-12-16 12:11] VITALS: BP 110/74
[2019-12-16] MEDS ORDERED: DEXA6TAB7 PO ×2 (12:53→13:03)
[2019-12-16] MEDS ORDERED: BENZ-39 PO (12:53)
[2019-12-16] MEDS ORDERED: DOXY500P4 MC (12:53)
[2019-12-16] MEDS ORDERED: [UNRECOGNIZED DRUG - CODE] MC (12:53)
[2019-12-16] MEDS ORDERED: ASCO500T10 PO (12:53)
[2019-12-16] MEDS ORDERED: ALBU8.5H8 IH (12:53)
[2019-12-16] MEDS: CEFTRIAXONE SODIUM 1 GM IVP SCH (12:55)
[2019-12-16] MEDS: ZINC SULFATE 220 CAPSULE PO SCH (12:57)
[2019-12-16] MEDS: ACETAMINOPHEN 325 MG TAB PO PRN (12:57)
[2019-12-16] MEDS ORDERED: LORA10TA60 PO (13:03)
== END 2019-12-16 15:15 | disposition home or self-care (01) | DRG 871 ==
LOC: EDH 08:43 → EDHIP 13:25 → 4AH 12-08 17:45
PROVIDERS: ADMIT Hospitalist; ATTEND Hospitalist
PROC: 30233K1 Transfusion of Nonautologous Frozen Plasma into Peripheral Vein, Percutaneous Approach (ICD-10-PCS; principal; 2019-12-07)
DX: A41.9 Sepsis, unspecified organism (principal); U07.1 COVID-19; J12.89 Other viral pneumonia; J96.01 Acute respiratory failure with hypoxia; E66.01 Morbid (severe) obesity due to excess calories; I10 Essential (primary) hypertension; K59.00 Constipation, unspecified; R53.81 Other malaise; Z68.33 Body mass index [BMI] 33.0-33.9, adult; Z86.19 Personal history of other infectious and parasitic diseases; Z82.49 Family history of ischemic heart disease and other diseases of the circulatory system
CPT/HCPCS: 36415; 36430; 36600; 71045; 71275; 74176; 80053; 81003; 82550; 82728; 82803; 83605; 83615; 83874; 84145; 84484; 85025; 85378; 85610; 85730; 86140; 86900; 86901; 86927; 87040; 87088; 87804; 93005; 99291; G0378; J0696; J1100; J1170; J1650; J1885; J2920; J3490; J7050; Q9967

== ENCOUNTER → 2020-01-13 | Outpatient (CLI) | payer BC ==
[~2020-01-13] MED LIST changes: +ALBU8.5H8 IH; +ASCO500T10 PO; +BENZ-39 PO; +DEXA6TAB7 PO; +DOXY500P4 MC; -LEVO500T2 PO; +LORA10TA60 PO; +[UNRECOGNIZED DRUG - CODE] MC
== END | disposition home or self-care (01) ==
LOC: RAH 16:00
PROVIDERS: ATTEND Internal Medicine
DX: U07.1 COVID-19 (principal); J12.89 Other viral pneumonia; M47.814 Spondylosis without myelopathy or radiculopathy, thoracic region
CPT/HCPCS: 71046

== ENCOUNTER → 2021-02-21 | Outpatient (CLI) | payer BC | END | disposition home or self-care (01) | LOC: RAH 15:21 | PROVIDERS: ATTEND Internal Medicine | DX: J84.9 Interstitial pulmonary disease, unspecified (principal); K80.20 Calculus of gallbladder without cholecystitis without obstruction | CPT/HCPCS: 71250 ==

== ENCOUNTER → 2023-05-26 | Outpatient (CLI) | payer BC | END | disposition home or self-care (01) | LOC: RAH 09:56 | PROVIDERS: ATTEND Internal Medicine | DX: J40 Bronchitis, not specified as acute or chronic (principal) | CPT/HCPCS: 71045 ==

== ENCOUNTER 2023-06-10 07:28 | Emergency (ER) | payer BC ==
[~2023-06-10] VITALS: Ht 177.8 cm; Wt 111.1 kg
[2023-06-10 08:01] LABS: BASOPHILS # (AUTO) 0.03 K/uL (0.00-0.20); BASOPHILS % (AUTO) 0.4 % (0.0-5.0); EOSINOPHILS % (AUTO) 2.6 % (0.0-8.0); HEMATOCRIT 46.4 % (42-54); IMMATURE GRANULOCYTE ABSOLUTE 0.04 K/uL (0-1); LYMPHOCYTES # (AUTO) 1.4 K/uL (1.0-4.8); LYMPHOCYTES % (AUTO) 18.1 % (21.0-51.0); MEAN CORPUSCULAR HEMOGLOBIN 28.9 pg (27.0-33.0); MEAN CORPUSCULAR HGB CONC 34.1 g/dL (32.0-36.0); MONOCYTES # (AUTO) 0.9 K/uL (0.1-1.0); MONOCYTES % (AUTO) 11.4 % (3.0-13.0); NEUTROPHILS # (AUTO) 5.3 K/uL (1.8-7.7); PLATELET COUNT (AUTO) 188 K/uL (130-400); RED BLOOD CELL COUNT(AUTO) 5.46 MIL/uL (4.50-6.20); RED CELL DISTRIBUTION WIDTH 13.4 % (11.0-15.5); WHITE BLOOD COUNT (AUTO) 7.8 K/uL (4.8-10.8)
[2023-06-10 08:13] LABS: RAPID GROUP A STREP negative (NEGATIVE)
[2023-06-10 08:13] LABS: ALBUMIN 3.9 g/dL (3.5-5.0); BILIRUBIN,TOTAL 0.7 mg/dL (0.2-1.0); CREATININE 1.3 mg/dL (0.5-1.5); POTASSIUM 3.5 mmol/L (3.5-5.1); TOTAL PROTEIN, SERUM 7.5 g/dL (6.0-8.3)
[2023-06-10 08:16] LABS: SARS-CoV-2, RNA, NAAT POSITIVE SARS CoV-2 (NEGATIVE)
[2023-06-10 08:24] LABS: INFLUENZA TYPE A Negative For Type A (NEGATIVE)
[2023-06-10] MEDS ORDERED: KETOROLAC 30MG VIAL (30MG/ML) IVP ONE (09:30)
[2023-06-10] MEDS ORDERED: 0.9%NACL 1000ML 1,000 ML IV ONE (09:30)
[2023-06-10] MEDS ORDERED: FAMOTIDINE 20MG VIAL IV ONE (09:30)
[2023-06-10] MEDS ORDERED: BENZONATATE 100 MG CAPSULE PO ONE (09:30)
[2023-06-10] MEDS ORDERED: ALBUTEROL 0.083% 2.5 MG/3 ML INH IH ONE (09:30)
[2023-06-10] MEDS ORDERED: METOCLOPRAMIDE 10 MG/2 ML VIAL IVP ONE (09:30)
[2023-06-10] MEDS ORDERED: DEXAMETHASONE SOD PHOSPHATE 4 MG/ML 1ML VIAL IV ONE (09:30)
[2023-06-10 09:44] VITALS: PULSE 92; RESP 18
[2023-06-10 11:37] LABS: APPEARANCE,URINE CLEAR (CLEAR); BILIRUBIN,URINE NEGATIVE (NEGATIVE); COLOR,URINE LIGHT-YELLOW (YELLOW); GLUCOSE, URINE (UA) NEGATIVE (NEGATIVE); KETONES,URINE NEGATIVE (NEGATIVE); LEUKOCYTE ESTERASE ,URINE 25 Leu/uL (NEGATIVE); NITRATE,URINE NEGATIVE (NEGATIVE); OCCULT BLOOD,URINE NEGATIVE (NEGATIVE); PH,URINE 6.5 (5.0-8.0); PROTEIN,URINE NEGATIVE (NEGATIVE); UROBILINOGEN,URINE 0.2 mg/dL (0.2-1.0)
[2023-06-10 11:38] LABS: ADD UA MICROSCOPIC YES
[2023-06-10 11:41] LABS: MUCUS,URINE RARE LPF (None Seen); RBC,URINE 0-1 /HPF (0-1); SQUAMOUS EPITHELIAL CELL,UR RARE /HPF (0-2); TRANSITIONAL EPI CELLS,URINE RARE /HPF (None Seen)
[2023-06-10 11:44] LABS: INFLUENZA TYPE B Positive For Type B (NEGATIVE)
[2023-06-10] MEDS ORDERED: ALBUHFA IH (12:44)
[2023-06-10] MEDS ORDERED: BENZ-39 PO (12:44)
[2023-06-10] MEDS ORDERED: AUD IH (12:44)
[2023-06-10 13:43] VITALS: BP 125/80; PULSE 82; RESP 18; O2SAT 99
== END 2023-06-10 13:40 | disposition home or self-care (01) ==
LOC: EDH 07:28
DX: U07.1 COVID-19 (principal); J10.1 Influenza due to other identified influenza virus with other respiratory manifestations; J20.8 Acute bronchitis due to other specified organisms; Z79.899 Other long term (current) drug therapy
CPT/HCPCS: 99284; 96374; 96361; 96375; 71045; 87635; 80053; 85025; 87880; 87804 ×2; 81001; 36415; 94640; J1100; J3490; J7030; J1885; J2765

== ENCOUNTER 2023-07-21 13:11 | Emergency (ER) | payer BC ==
[~2023-07-21] VITALS: Ht 172.7 cm; Wt 111.1 kg
[~2023-07-21 13:11] MED LIST changes: +ALBUHFA IH; +AUD IH
[2023-07-21 13:12] VITALS: BP 136/85; PULSE 107; RESP 16
== END 2023-07-21 13:53 | disposition left against medical advice (07) ==
LOC: EDH 13:11
DX: M25.531 Pain in right wrist (principal); Z53.21 Procedure and treatment not carried out due to patient leaving prior to being seen by health care provider

== ENCOUNTER → 2024-06-25 | Outpatient (CLI) | payer BC ==
--- NOTE | 2024-06-25 14:28 | HMCIMG ---
CT NONCONTRAST CHEST Comparison Study: none History: COUGH Technique: Helical CT of the chest without IV contrast at 5 mm collimation. Coronal and sagittal reformations also done. CT Dose Index (CTDI): 2.38 mGy Dose Length Product (DLP): 94.8 total mGy-cm Findings: The airway is intact. The trachea and major bronchi are unremarkable. The chest exam shows no pulmonary nodules or masses. No significant pulmonary parenchymal abnormalities are noted. No pulmonary infiltrates or mass lesions are seen. No pleural effusions are identified. There is no pneumothorax. There is no evidence of pneumomediastinum. The nonenhanced exam of the claudia and mediastinum is unremarkable. No evidence of hilar enlargement is seen. The aorta shows no aneurysmal dilatation or significant atheromatous calcification. No significant brachiocephalic vascular abnormalities are seen. The heart is unremarkable. It is not enlarged. No significant coronary arterial calcifications are seen. There is no pericardial effusion. The rib cage appears unremarkable. The soft tissues of the chest wall are unremarkable. The dorsal spine shows no significant abnormalities. Incidentally, there is evidence of cholelithiasis. IMPRESSION: NORMAL CT OF THE CHEST WITHOUT CONTRAST. This study was performed using dose reduction techniques to include automated exposure control and/or adjustment of the mA and/or kV according to patient size.
== END | disposition home or self-care (01) ==
LOC: RAH 13:46
PROVIDERS: ATTEND Internal Medicine
DX: J84.10 Pulmonary fibrosis, unspecified (principal); R06.02 Shortness of breath
CPT/HCPCS: 71250

== ENCOUNTER 2024-07-30 12:43 | Emergency (ER) | payer BC ==
[~2024-07-30] VITALS: Ht 175.3 cm; Wt 110.7 kg
[2024-07-30] MEDS: ORPHENADRINE 60MG/2ML IVP ONE (13:08)
[2024-07-30] MEDS: ketOROlac 15MG/ML VIAL (15MG/ML) IV ONE (13:08)
[2024-07-30 13:32] LABS: BASOPHILS # (AUTO) 0.07 K/uL (0.00-0.20); BASOPHILS % (AUTO) 0.6 % (0.0-5.0); EOSINOPHILS # (AUTO) 0.15 K/uL (0.00-0.70); EOSINOPHILS % (AUTO) 1.3 % (0.0-8.0); HEMATOCRIT 48.7 % (42-54); IMMATURE GRANULOCYTE ABSOLUTE 0.12 K/uL (0-1); LYMPHOCYTES # (AUTO) 1.8 K/uL (1.0-4.8); LYMPHOCYTES % (AUTO) 15.1 % (21.0-51.0); MEAN CORPUSCULAR HEMOGLOBIN 28.8 pg (27.0-33.0); MEAN CORPUSCULAR HGB CONC 33.3 g/dL (32.0-36.0); MEAN CORPUSCULAR VOLUME 86.5 fL (79-99); MONOCYTES % (AUTO) 8.5 % (3.0-13.0); NEUTROPHILS # (AUTO) 8.6 K/uL (1.8-7.7); NEUTROPHILS % (AUTO) 73.5 % (40.0-77.0); PLATELET COUNT (AUTO) 207 K/uL (130-400); RED BLOOD CELL COUNT(AUTO) 5.63 MIL/uL (4.50-6.20); RED CELL DISTRIBUTION WIDTH 13.2 % (11.0-15.5); WHITE BLOOD COUNT (AUTO) 11.7 K/uL (4.8-10.8)
[2024-07-30 13:35] LABS: APPEARANCE,URINE CLEAR (CLEAR); BILIRUBIN,URINE NEGATIVE (NEGATIVE); COLOR,URINE YELLOW (YELLOW); GLUCOSE, URINE (UA) NEGATIVE (NEGATIVE); KETONES,URINE NEGATIVE (NEGATIVE); LEUKOCYTE ESTERASE ,URINE NEGATIVE Leu/uL (NEGATIVE); NITRATE,URINE NEGATIVE (NEGATIVE); OCCULT BLOOD,URINE NEGATIVE (NEGATIVE); PH,URINE 5.5 (5.0-8.0); PROTEIN,URINE 10 mg/dL (NEGATIVE); UROBILINOGEN,URINE 0.2 mg/dL (0.2-1.0)
[2024-07-30 13:43] LABS: POTASSIUM 3.8 mmol/L (3.5-5.1)
[2024-07-30 14:00] LABS: ADD UA MICROSCOPIC YES
[2024-07-30 14:05] LABS: BACTERIA,URINE Rare /HPF (None Seen); RBC,URINE 0-1 /HPF (0-1); SQUAMOUS EPITHELIAL CELL,UR 0-2 /HPF (0-2); WBC,URINE 0-1 /HPF (0-1)
[2024-07-30] MEDS: ondanSETRON 4MG INJ IVP ONE (15:15)
[2024-07-30] MEDS: morPHINE 2 MG SYG IVP ONE (15:16)
--- NOTE | 2024-07-30 15:29 | HMCIMG ---
MRI OF THE LUMBAR SPINE WITHOUT GADOLINIUM Findings: Technique: Sagittal T1 and T2 FSE, Sagittal STIR and Sagittal proton density images were completed through the lumbosacral spine. Axial T1, T2 and proton density images were also acquired. FINDINGS: Examination shows adequate alignment of the vertebral bodies of the lumbar spine. No fractures or dislocations are identified.The bone marrow signal is normal for age. The spinal canal contents are preserved. The conus terminates at a normal level at T12 to L2. The paraspinal muscles and other tissues show no significant abnormalities. Evaluation of the lumbar spine by level: T12-L1: There is no spinal canal stenosis. No disc protrusion or extrusion is noted. There is no neural foraminal stenosis, impingement, or narrowing. L1-L2: There is no spinal canal stenosis. No disc protrusion or extrusion is noted. There is no neural foraminal stenosis, impingement, or narrowing. L2-L3: There is no spinal canal stenosis. No disc protrusion or extrusion is noted. There is no neural foraminal stenosis, impingement, or narrowing. L3-L4: There is a broad-based central zone disc protrusion causing neural foramina narrowing bilaterally at this level. No nerve root impingement seen. L4-L5: There is a broad-based central zone disc protrusion causing neural foramina narrowing bilaterally at this level. No nerve root impingement seen. L5-S1: There is no spinal canal stenosis. No disc protrusion or extrusion is noted. There is no neural foraminal stenosis, impingement, or narrowing. Impression: Broad-based central zone disc protrusions at L3-4, and L4-5, causing neural foraminal narrowing bilaterally.
--- NOTE | 2024-07-30 15:46 | HMCIMG ---
Testicular ultrasound with color-flow Doppler Clinical Information: Comparison: Findings: The testes are of normal size and echogenicity. Vascular flow is preserved to both testes- there is no evidence of torsion. There is no evidence of inflammation. Small right hydrocele. The epididymis is unremarkable bilaterally. There is no evidence of varicoceles. Scrotal wall is normal in thickness bilaterally. Impression: Normal testes. Small right hydrocele.
--- NOTE | 2024-07-30 16:09 | ERN ---
General Chief Complaint: Back Pain-No Injury Stated Complaint: LOW BACK PAIN, SCROTAL PRESSURE Time Seen by MD: 12:46 Time Seen by Midlevel: 12:46 Source: patient History of Present Illness Initial Comments Patient is a 54-year-old male presenting to the emergency department with lumbar pain following a near fall that occurred approximately one week ago. At that time he had low back pain and was seen at a [facility] and I clinic where he had an x- ray of the lumbar region performed that showed no acute fracture. For the last three days he has noticed an increase in scrotal pain/pressure. He was seen at a local urgent care who referred him to the emergency department to rule out cauda equina syndrome. Allergies: Coded Allergies: No Known Drug Allergies (Verified Allergy, 10/11/12) Home Meds Active Scripts Benzonatate (Tessalon Perles) 100 Mg Cap, 100 MG PO TIDP PRN for COUGH/COLD SYMPTOMS, #40 CAP 2 Refills Prov:DASHA HUDDLESTON Sr., MD 06/10/23 Albuterol Sulfate (Ventolin Hfa/Proventil Hfa/Proair Hfa) 90 Mcg Puff, 2 PUFF IH Q4H for WHEEZING, #1 INHALER 2 Refills Prov:DASHA HUDDLESTON Sr., MD 06/10/23 Albuterol Sulfate (Albuterol Sulfate) 2.5 Mg/0.5 Ml Vial.neb, 2.5 MG IH Q6H for wheezing/sob, #20 INH 2 Refills Prov:DASHA HUDDLESTON Sr., MD 06/10/23 Loratadine (Claritin) 10 Mg Tablet, 10 MG PO DAILY PRN for NASAL CONGESTION for 15 Days, #15 TAB Prov:CHERRY JOHNSON [employer] 730/20 Dexamethasone (Decadron) 6 Mg Tablet, 6 MG PO DAILY for 5 Days, #5 TAB Prov:CHERRY JOHNSON [employer] 7/30/20 Benzonatate (Tessalon Perles) 100 Mg Cap, 200 MG PO TID PRN for COUGH for 10 Days, #30 CAP Prov:CHERRY JOHNSON [employer] 7/30/20 Albuterol Sulfate (Proair Hfa) 8.5 Gm Hfa.aer.ad, 8.5 GM IH DAILY PRN for SHORTNESS OF BREATH/WHEEZING for 14 Days, #14 10 Prov:CHERRY JOHNSON [facility] 12/16/19 Zinc Acetate Dihydrate (Zinc Acetate) 500 Gm Crystals, 500 GM MC DAILY for 14 Days, #14 PKT Prov:CHERRY JOHNSON [facility] 12/16/19 Ascorbic Acid (Ascorbic Acid) 500 Mg Tablet, 500 MG PO DAILY for 14 Days, #14 TAB Prov:CHERRY JOHNSON [facility] 12/16/19 Doxycycline Monohydrate (Doxycycline Monohydrate) 500 Gm Powder, 500 GM MC DAILY for 5 Days, #5 APPL Prov:CHERRY JOHNSON [facility] 12/16/19 Past Medical History Past Medical History: Bronchitis, High Cholesterol Past Surgical History: None Surgical History Other: HAND ROS Dictation CONSTITUTIONAL: Negative except for HPI HEAD/FACE: Negative except for HPI EENT: Negative except for HPI RESPIRATORY: Negative except for HPI GASTROINTESTINAL/ABDOMINAL: Negative except for HPI GENITOURINARY: Negative except for HPI MUSCULOSKELETAL: Negative except for HPI INTEGUMENTARY: Negative except for HPI NEUROLOGICAL/PSYCH: Negative except for HPI HEMATOLOGIC/LYMPHATIC: Negative except for HPI All Systems Negative, Except as noted above. 13 point review of systems assessed and all negative except for above. Physical Exam Physical Exam Dictation Vital Signs reviewed General Appearance: Alert, oriented x 3, no acute distress, well developed, nourished. Head and Face: non-traumatic. Eyes: PERRL, pink conjunctivas, eyelid no trauma, anterior chamber with arcus senilis. Ears: Pinnas intact and no signs of trauma or erythema ear canals clear and no discharge TM no erythema Nose: No discharge, no bleeding. Oropharynx: Mouth normal, tongue pink, pharynx clear,no erythema, tonsils no exudates, no abscesses noted, mucous membrane moist Neck: Supple, non-tender, no thyromegaly, no masses, no JVD, no bruits Breast:Deferred Chest:No tenderness, no crepitus, no paradoxical movement, no retractions Lungs:Clear, well-ventilated, symmetric, no rales, no wheezing, no rhonchi, no stridor, good breath sounds bilaterally Heart: Regular rate, regular rhythm, no murmur, no gallops Vascular: no peripheral edema, Abdomen: Soft, positive bowel sounds, nondistended, no guarding, nontender, no rebound, no masses no hepatomegaly, no splenomegaly, no Clark's sign, no hernias. Rectal: Deferred Genital: Deferred Neurological: Normal speech, motor function intact, sensory function intact Musculoskeletal: Neck nontender, full range of motion, back nontender, full range of motion, Extremities: nontender, full range of motion Skin: Color pink, dry, no turgor, no rash, no lacerations, no abrasions, no contusions. Lymphatic: Deferred Results Laboratory and Microbiology Lab and Micro Result Laboratory Tests Test 07/30/24 13:14 07/30/24 13:22 Urine Color YELLOW (YELLOW) Urine Appearance CLEAR (CLEAR) Urine pH 5.5 (5.0-8.0) Urine Specific [place] 1.026 (1.001-1.031) Urine Protein 10 mg/dL (NEGATIVE) H Urine Glucose (UA) NEGATIVE mg/dL (NEGATIVE) Urine Ketones NEGATIVE mg/dL (NEGATIVE) Urine Occult Blood NEGATIVE (NEGATIVE) Urine Nitrate NEGATIVE (NEGATIVE) Urine Bilirubin NEGATIVE mg/dL (NEGATIVE) Urine Urobilinogen 0.2 mg/dL (0.2-1.0) Urine Leukocyte Esterase NEGATIVE Sujatha/uL Urine RBC 0-1 /HPF (0-1) Urine WBC 0-1 /HPF (0-1) Urine Squamous Epithelial Cells 0-2 /HPF (0-2) Urine Bacteria Rare /HPF (None Seen) White Blood Count 11.7 K/uL (4.8-10.8) H Red Blood Count 5.63 MIL/uL (4.50-6.20) Hemoglobin 16.2 g/dL (14.0-18.0) Hematocrit 48.7 % (42-54) Mean Corpuscular Volume 86.5 fL (79-99) Mean Corpuscular Hemoglobin 28.8 pg (27.0-33.0) Mean Corpuscular Hemoglobin Concent 33.3 g/dL (32.0-36.0) Red Cell Distribution Width 13.2 % (11.0-15.5) Platelet Count 207 K/uL (130-400) Mean Platelet Volume 11.6 fL (7.5-10.5) H Immature Granulocyte % (Auto) 1.0 % (0-1) Neutrophils (%) (Auto) 73.5 % (40.0-77.0) Lymphocytes (%) (Auto) 15.1 % (21.0-51.0) L Monocytes (%) (Auto) 8.5 % (3.0-13.0) Eosinophils (%) (Auto) 1.3 % (0.0-8.0) Basophils (%) (Auto) 0.6 % (0.0-5.0) Neutrophils # (Auto) 8.6 K/uL (1.8-7.7) H Lymphocytes # (Auto) 1.8 K/uL (1.0-4.8) Monocytes # (Auto) 1.0 K/uL (0.1-1.0) Eosinophils # (Auto) 0.15 K/uL (0.00-0.70) Basophils # (Auto) 0.07 K/uL (0.00-0.20) Absolute Immature Granulocyte (auto 0.12 K/uL (0-1) Nucleated Red Blood Cells 0.0 % (0.0-0.19) Sodium Level 138 mmol/L (136-145) Potassium Level 3.8 mmol/L (3.5-5.1) Chloride Level 103 mmol/L (101-111) Carbon Dioxide Level 32 mmol/L (21-32) Blood Urea Nitrogen 15 mg/dL (7-18) Creatinine 1.0 mg/dL (0.5-1.3) Glomerular Filtration Rate Calc 89 mL/min (>90) Random Glucose 107 mg/dL (70-105) H Total Calcium 8.8 mg/dL (8.5-10.1) Labs Reviewed?: Yes MDM MDM: Patient is a 54-year-old male presenting to the emergency department with lumbar pain following a near fall that occurred approximately one week ago. At that time he had low back pain and was seen at a day and I clinic where he had an x-ray of the lumbar region performed that showed no acute fracture. For the last three days he has noticed an increase in scrotal pain/pressure. He was seen at a local urgent care who referred him to the emergency department to rule out cauda equina syndrome. On physical examination the patient has 5/5 strength to bilateral upper and lower extremities. There was no loss of urinary/bowel incontinence. Scrotal examination is unremarkable. However the patient has some subjective pain. Ultrasound of the scrotum was obtained to rule out testi cular torsion but scrotal ultrasound does not show any evidence of torsion. There is a right hydrocele. An MRI of the lumbar region was obtained to rule out cauda equina syndrome. MRI reveals broad-based central zone disc protrusion at L3 through L4, and L4 through L5 causing neural foraminal narrowing bilaterally. This was discussed with both the patient and his who is at bedside. At this time we have provided pain control in the emergency department. There was no need for emergent intervention at this time. The patient will need to see his primary care doctor for possible referral to Neurosurgery for further evaluation. Patient has no red flag symptoms at this time. Cauda equina syndrome has been ruled out. Differential diagnosis: Cauda equina syndrome, lumbar fracture, bulging disc, There are no social concerns with this patient. Prescription drug management Prescriptions will include: Meloxicam Voltaren gel, Flexeril Medical management and examination interpretation discussions were had by me with other qualified healthcare professionals as indicated for the patient's care. ED Course Orders Procedure Category Date Status Time Cbc With Differential LAB 07/30/24 Complete 12:50 Basic Metabolic Panel LAB 07/30/24 Complete 12:50 Urinalysis Profile LAB 07/30/24 Complete 12:50 Ketorolac PHA 07/30/24 Complete Tromethamine 15mg/Ml 13:00 Orphenadrine Citrate PHA 07/30/24 Complete (Norflex) 13:00 Mr Spinal Canal, MRI 07/30/24 Resulted Lumbar Wo Con 13:18 Us Scrotum & Contents US 07/30/24 Resulted 14:25 Morphine 2mg Syg PHA 07/30/24 Complete (Morphine 2mg Syg) 15:00 Ondansetron 4mg Inj PHA 07/30/24 Complete (Zofran 4mg Inj) 15:00 Hydromorphone 0.5mg PHA 07/30/24 Logged Syg (Dilaudid 0.5mg 16:30 Current Medications Medications (Trade) Dose Ordered Sig/Ismael Route PRN Reason Start Time Stop Time Status Last Admin Dose Admin Hydromorphone HCl (DiLAUDid 0.5MG INJ) 0.5 mg ONCE ONCE IVP 07/30/24 16:30 07/30/24 16:31 UNV Ketorolac Tromethamine (toRADol) 15 mg ONCE ONCE IV 07/30/24 13:00 07/30/24 13:01 DC 07/30/24 13:08 Morphine Sulfate (morPHINE 2MG SYG) 2 mg ONCE ONCE IVP 07/30/24 15:00 07/30/24 15:01 DC 07/30/24 15:16 Ondansetron HCl (zoFRAN 4MG INJ) 4 mg ONCE ONCE IVP 07/30/24 15:00 07/30/24 15:01 DC 07/30/24 15:15 Orphenadrine Citrate (Norflex) 60 mg ONCE ONCE IVP 07/30/24 13:00 07/30/24 13:01 DC 07/30/24 13:08 Vital Signs Date Time Temp Pulse Resp B/P (MAP) Pulse Ox O2 Delivery O2 Flow Rate FiO2 07/30/24 13:46 98.4 69 18 129/86 98 Room Air* 0 21 07/30/24 12:44 98.4 84 16 125/91 98 Room Air [address] [id number] IMAGING REPORT Signed PATIENT: YOHANA CHANEL MR#: [id number] : 1970 SEX: M AGE: 54 LOCATION: [facility] ORDER 18 STATUS: REG ER REPORT#: [id number] SERVICE 17 REASON: lower back pain, scrotal pressure, weakness ORDERING PHYSICIAN: KIRBY ARCHIBALD PROCEDURE: L SPN WO - MR SPINAL CANAL, LUMBAR WO CON MRI OF THE LUMBAR SPINE WITHOUT GADOLINIUM Findings: Technique: Sagittal T1 and T2 FSE, Sagittal STIR and Sagittal proton density images were completed through the lumbosacral spine. Axial T1, T2 and proton density images were also acquired. FINDINGS: Examination shows adequate alignment of the vertebral bodies of the lumbar spine. No fractures or dislocations are identified.The bone marrow signal is normal for age. The spinal canal contents are preserved. The conus terminates at a normal level at T12 to L2. The paraspinal muscles and other tissues show no significant abnormalities. Evaluation of the lumbar spine by level: T12-L1: There is no spinal canal stenosis. No disc protrusion or extrusion is noted. There is no neural foraminal stenosis, impingement, or narrowing. L1-L2: There is no spinal canal stenosis. No disc protrusion or extrusion is noted. There is no neural foraminal stenosis, impingement, or narrowing. L2-L3: There is no spinal canal stenosis. No disc protrusion or extrusion is noted. There is no neural foraminal stenosis, impingement, or narrowing. L3-L4: There is a broad-based central zone disc protrusion causing neural foramina narrowing bilaterally at this level. No nerve root impingement seen. L4-L5: There is a broad-based central zone disc protrusion causing neural foramina narrowing bilaterally at this level. No nerve root impingement seen. L5-S1: There is no spinal canal stenosis. No disc protrusion or extrusion is noted. There is no neural foraminal stenosis, impingement, or narrowing. Impression: Broad-based central zone disc protrusions at L3-4, and L4-5, causing neural foraminal narrowing bilaterally. DICTATED BY: ROSEANN MESSINA MD DATE: 07/30/241524 ELECTRONICALLY SIGNED BY: ROSEANN MESSINA MD DATE: 07/30/24 [address] [place] [address] IMAGING REPORT Signed PATIENT: YOHANA CHANEL MR#: [id number] : 1970 SEX: M AGE: 54 LOCATION: [facility] ORDER 25 STATUS: REG REPORT#: [id number] SERVICE 24 REASON: bilateral testicular pressure ORDERING PHYSICIAN: KIRBY ARCHIBALD PROCEDURE: SCROTUM - US SCROTUM & CONTENTS Testicular ultrasound with color-flow Doppler Clinical Information: Comparison: Findings: The testes are of normal size and echogenicity. Vascular flow is preserved to both testes- there is no evidence of torsion. There is no evidence of inflammation. Small right hydrocele. The epididymis is unremarkable bilaterally. There is no evidence of varicoceles. Scrotal wall is normal in thickness bilaterally. Impression: Normal testes. Small right hydrocele. DICTATED BY: ROSEANN MESSINA MD DATE: 07/30/241541 ELECTRONICALLY SIGNED BY: ROSEANN MESSINA MD DATE: 07/30/241545 DX & DISP Disposition: Discharge Departure Impression: Primary Impression: Neural foraminal stenosis of lumbar spine Condition: Stable Scripts Diclofenac Sodium (Voltaren Arthritis Pain) 1 % Gel..gram. 20 GM TP DAILY, #20 G Prov: KIRBY ARCHIBALD 07/30/24 Cyclobenzaprine HCl (Flexeril) 10 Mg Tab 10 MG PO TID for muscle sstiffness, #14 TAB 0 Refills Prov: KIRBY ARCHIBALD 07/30/24 Meloxicam (Meloxicam) 15 Mg Tablet 1 TAB PO DAILY for 30 Days, #30 TAB 0 Refills Prov: KIRBY ARCHIBALD 07/30/24 Additional Instructions: Your blood work today is unremarkable. Your kidney function is normal. Your urinalysis does not show any evidence of infection or microscopic blood. Your scrotal ultrasound does not show any evidence of testicular torsion. Your MRI reveals stenosis of the lumbar region. There is no need for emergent intervention at this time. You will need to see your primary care doctor for possible referral to Neurosurgery for outpatient evaluation. Referrals: HADLEY QUINONES MD (PCP) JOHN GUILLAUME MD Time of Disposition: 16:28 I have reviewed the case, and I agree with, Diagnosis and Plan I performed the substantive portion of the visit. I have reviewed and personally made and approve the management plan that is documented in the note by myself or the DENNIS. I acknowledge for responsibility for the patient's management plan. KIRBY ARCHIBALD Jul 30, 2024 16:09
[2024-07-30] MEDS ORDERED: MELO-108 PO (16:29)
[2024-07-30] MEDS ORDERED: CYCL10TA16 PO (16:29)
[2024-07-30] MEDS ORDERED: DICL20GE TP (16:29)
[2024-07-30] MEDS: hydroMORPHone 0.5 MG SYG (0.5MG/0.5ML) IVP ONE (17:11)
[2024-07-30 18:01] VITALS: BP 123/80; PULSE 70; RESP 16; TEMP 98.3; O2SAT 97
== END 2024-07-30 17:45 | disposition home or self-care (01) ==
LOC: EDH 12:43
DX: M48.061 Spinal stenosis, lumbar region without neurogenic claudication (principal); E78.00 Pure hypercholesterolemia, unspecified; Z79.52 Long term (current) use of systemic steroids; Z79.899 Other long term (current) drug therapy
CPT/HCPCS: 99285; 72148; 96374; 96375; 80048; 85025; 81001; 36415; 76870; J1885; J1171; J2270; J2405; J2360